=== PATIENT | female | born 1995 | race Caucasian/White ===

== ENCOUNTER → 2025-03-21 | Day surgery (SDC) | payer OTHER ==
[2025-03-12 10:33] LABS: BASOPHILS % 0.5 % (0.0-1.0); EOSINOPHILS % 2.2 % (0.0-6.0); LYMPHOCYTES % 26.1 % (18.0-39.1); MONOCYTES % 5.2 % (4.4-11.3); NEUTROPHILS % 65.9 % (38.7-80.0); RED CELL DISTRIBUTION WIDTH 12.2 % (11.7-14.4)
[2025-03-12 11:05] LABS: EST GLOMERULAR FILTRATION RATE 87.0 ML/MIN (>=60)
[~2025-03-21] MED LIST: ACETAMINOPHEN 1000 MG/100 ML 100 ML IV ONE; ADDERALL 30 MG30 MG PO; DEXAMETHASONE SOD PHOS INJ 4 MG/ML SDV ONE; DICLOFENAC35 MG PO; FENTANYL CITRATE/PF 100MCG/2 ML INJ ONE; LIDOCAINE HCL 2% LOCAL INJ 5 ML SDV VIAL INJ ONE; METOPROLOL SUCC25 MG PO; MOUNJARO7.5 MG/0.5; NEXIUM40 MG PO; ONDANSETRON HCL INJ 2MG/ML 2ML 2 MG/ML VIAL ONE; PROPOFOL IV EMULSION 10 MG/ML 20 ML VIAL ONE
[2025-03-21] MEDS: CEFAZOLIN SODIUM 2 GM ONE (09:01)
[2025-03-21] MEDS: LACTATED RINGER'S 1,000 ML ONE (09:01)
[2025-03-21 13:03] VITALS: TEMP 97.4
[2025-03-21] MEDS: FENTANYL CITRATE/PF 100MCG/2 ML INJ ONE (13:38)
[2025-03-21] MEDS: KETOROLAC TROMETHAMINE 30 MG/ML VIAL ONE (13:58)
[2025-03-21 14:15] VITALS: BP 102/69; PULSE 67; RESP 16; O2SAT 98
[2025-03-21] MEDS: HYDROCODONE/APAP 7.5MG-325MG 1 EA TAB ONE (14:20)
== END | disposition home or self-care (01) ==
LOC: OR 07:58
PROVIDERS: ATTEND Orthopaedic Surgery
DX: S83.512A Sprain of anterior cruciate ligament of left knee, initial encounter (principal); S83.232A Complex tear of medial meniscus, current injury, left knee, initial encounter; S83.282A Other tear of lateral meniscus, current injury, left knee, initial encounter; X58.XXXA Exposure to other specified factors, initial encounter; K21.9 Gastro-esophageal reflux disease without esophagitis; F41.9 Anxiety disorder, unspecified; Z79.85 Long-term (current) use of injectable non-insulin antidiabetic drugs; Z79.899 Other long term (current) drug therapy; Z01.810 Encounter for preprocedural cardiovascular examination; Z01.812 Encounter for preprocedural laboratory examination
CPT/HCPCS: 29882; 29888; 29999; 36415; 71046; 80053; 81025; 85025; 93005; C1713 ×3; C1769; J0131; J1100; J1885; J2003; J2405; J2704; J3010; J7121